=== PATIENT | female | born 1940 | race Caucasian/White ===

== ENCOUNTER 2017-01-20 08:30 | Outpatient (CLI) | payer OTHER ==
--- NOTE | 2017-01-20 10:37 | DIAGNOSTIC IMAGING REPORT ---
PROCEDURE: US ABDOMEN VASCULAR-AAA INDICATION: AAA, BILATERAL LE EDEMA TECHNIQUE: Burk scale and color Doppler sonographic images of the abdomen were obtained. COMPARISON: Ultrasound of the abdominal aorta and 03/22/2015 FINDINGS: Moderate atherosclerosis. Maximal diameter of the abdominal aorta: Proximal 2.2 cm, mid 1.9 cm and distal 3.6 cm (previously 3.6 cm) right iliac artery measures 0.9 cm and left iliac artery 1.0 cm. There is a right iliac stenosis manifested by a peak systolic velocity of 223 cm/sec IMPRESSION: 1. No change in 3.6 cm distal abdominal aortic aneurysm (previously 3.6 cm) 2. Right iliac artery stenosis.
== END 2017-01-20 23:00 ==
LOC: US SRH 08:30
DX: I71.4 Abdominal aortic aneurysm, without rupture (principal); I77.1 Stricture of artery

== ENCOUNTER → 2017-02-12 | Outpatient (CLI) | payer OTHER ==
--- NOTE | 2017-02-12 11:41 | DIAGNOSTIC IMAGING REPORT ---
PROCEDURE: CT LOW-DOSE LUNG CA SCREENING CLINICAL INDICATION: Screening. 50+ pack years, current smoker. History of COPD and family history of lung cancer. TECHNIQUE: Low-dose helical CT images of the lungs without contrast were obtained and reconstructed at 2.5 mm slice thickness. MIP reformations in coronal and sagittal planes were created. Radiation dose 1.38 mGy. COMPARISON: Oldest available comparison: None FINDINGS: NODULES: 1. Location: Pleural-based lateral right upper lobe image location: 11-06 and 601-70 size: 4 mm composition: Ground-glass. 2. Location: Pleural-based lateral right lower lobe image location: size: 4 mm composition: Solid 3. Location: Posterior aspect right upper lobe image location: 11-09 size: 3 mm composition: Ground-glass 4. Location: . image location: size: composition: 5. Location: . image location: size: composition: OTHER LUNG FINDINGS: Moderate upper lobe and mild lower lobe central lobular emphysematous changes. Minor lingular and bibasilar atelectatic change. AIRWAY: Mild bilateral lower lobe bronchiectasis. No endobronchial nodule. PLEURA: No effusions, thickening, or pneumothorax. 2.3 cm left lateral subpleural cyst. AORTA AND GREAT VESSELS: Mild aorto ectasia, mild atherosclerotic calcification. PULMONARY ARTERIES: Normal. . HEART AND PERICARDIUM: Normal size without effusion, thickening. CHEST SOFT TISSUES: No enlarged nodes visible. The thyroid gland appears diffusely enlarged, left lobe greater than right lobe. The left lobe extends to , and just below the sternal notch. There is some fluid in the mid esophagus. There is a small hiatal hernia. THORACIC SPINE: No suspicious lesion. Degenerative endplate changes. CHEST WALL: Normal. VISUALIZED UPPER ABDOMEN: Normal. Surgically absent gallbladder and moderate calcific abdominal aortic atherosclerosis. IMPRESSION: 1. Three right lung nodules identified ranging from 3-4 mm, both ground-glass and solid composition. Given diminutive size, these exhibit benign characteristics. (Very low likelihood of becoming clinically active cancer). 2. Lung RADS category two. Annual screening low-dose chest CT screening recommended. 3. Mild to moderate emphysematous changes and lower lobe bronchiectasis. 4. Enlarged thyroid gland, previously evaluated with thyroid ultrasound. All CT scans at this facility use dose modulation, iterative reconstruction, and/or weight-based dosing when appropriate to reduce radiation dose to as low as reasonably achievable.
== END ==
LOC: CT SRH 10:29
DX: R91.1 Solitary pulmonary nodule (principal); J43.9 Emphysema, unspecified; E04.9 Nontoxic goiter, unspecified; F17.210 Nicotine dependence, cigarettes, uncomplicated